=== PATIENT | female | born 1950 | race Caucasian/White ===

== ENCOUNTER 2017-08-22 13:21 | Outpatient (CLI) | payer OTHER ==
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
== END 2017-08-22 13:22 | disposition home or self-care (01) ==
LOC: MADRAD 13:21
PROVIDERS: ATTEND Physician Assistant
DX: M54.6 Pain in thoracic spine (principal); M47.896 Other spondylosis, lumbar region; M47.894 Other spondylosis, thoracic region
CPT/HCPCS: 72072; 72100

== ENCOUNTER 2018-04-20 20:59 | Emergency (ER) | payer OTHER | END 2018-04-20 21:42 | disposition home or self-care (01) | LOC: MADERS 20:59 | DX: I10 Essential (primary) hypertension (principal); B02.9 Zoster without complications; I48.91 Unspecified atrial fibrillation; F32.9 Major depressive disorder, single episode, unspecified; F17.210 Nicotine dependence, cigarettes, uncomplicated; Z87.442 Personal history of urinary calculi; Z79.01 Long term (current) use of anticoagulants; Z79.899 Other long term (current) drug therapy; Z79.82 Long term (current) use of aspirin | CPT/HCPCS: 99283 ==

== ENCOUNTER 2018-05-23 11:12 | Emergency (ER) | payer MEDICARE, OTHER ==
[2018-05-23 12:46] LABS: #Basophils 0.1 thou/uL (0.0-0.2); #Eosinphils 0.3 thou/uL (0.0-0.7); #Lymphocytes 2.4 thou/uL (1.20-3.40); #Monocytes 0.8 thou/uL (0.11-0.59); #Neutrophils 6.5 thou/uL (1.40-6.50); %Eosinophils 2.8 % (0.0-10.0); %Lymphocytes 23.5 % (21.0-51.0); %Monocytes 8.2 % (0.0-10.0); %Neutrophils 64.4 % (42.0-75.0); Hemoglobin 14.5 g/dL (12.0-16.0); Mean Corpuscular HGB CONC 33.3 g/dL (32.0-36.0); Mean Platelet Volume 8.9 fL (7.4-10.4); Platelet Count 216 thou/uL (130-400); Red Blood Cell (RBC) Count 4.69 mill/uL (4.20-5.40)
--- NOTE | 2018-05-23 12:54 | RAD ---
SINGLE VIEW OF THE CHEST: Comparison: 11-29-14 History: Dyspnea. FINDINGS: Single view of the chest shows a normal sized cardiomediastinal silhouette. There is no evidence of c onsolidation, mass, or pleural effusion. The bones are unremarkable. IMPRESSION: No evidence of acute cardiopulmonary disease. POS: [facility]
[2018-05-23 13:03] LABS: ALT (SGPT) 26 U/L (8-55); AST (SGOT) 19 U/L (5-34); Albumin 3.9 g/dL (3.4-4.8); Alkaline Phosphatase 98 U/L (40-150); Anion Gap 14 mmol/L (10-20); BUN (Urea Nitrogen) 16 mg/dL (9.8-20.1); Bilirubin, Total 0.5 mg/dL (0.2-1.2); CK (CPK) 60 U/L (29-168); Calc. Creatinine Clearance 0 mL/min (70-130); Carbon Dioxide 25 mmol/L (23-31); Chloride 108 mmol/L (98-107); Estimated GFR-MDRD Greater than 90; Globulin 2.7 g/dL (2.4-3.5); Glucose 96 mg/dL (80-115); Potassium 3.9 mmol/L (3.5-5.1); Protein, Total 6.6 g/dL (6.0-8.3); Sodium 143 mmol/L (136-145)
--- NOTE | 2018-05-23 13:03 | CT ---
CT BRAIN WITHOUT CONTRASTS: History: Severe vertigo that began this morning. Comparison: None. Technique: Multiple contiguous axial images were obtained in a CT of the brain without contrast. FINDINGS: The brain is normal in morphology without focal lesions or confluent areas of infarct. There is no ev idence of hydrocephalus, intracranial hemorrhage or extraaxial fluid collections. The calvarium and overlying soft tissues are unremarkable. The visualized paranasal sinuses and masto id air cells are well aerated. IMPRESSION: No evidence of acute intracranial abnormality. POS: [facility]
[2018-05-23 13:31] LABS: INR-International Normal Ratio 2.5; PTT 36.4 SEC (22.9-36.1); Prothrombin Time 26.8 SEC (12.0-14.7)
== END 2018-05-23 14:35 | disposition home or self-care (01) ==
LOC: MADERS 11:12
DX: H81.399 Other peripheral vertigo, unspecified ear (principal); R06.00 Dyspnea, unspecified; I48.91 Unspecified atrial fibrillation; F32.9 Major depressive disorder, single episode, unspecified; F17.210 Nicotine dependence, cigarettes, uncomplicated; Z79.899 Other long term (current) drug therapy; Z79.01 Long term (current) use of anticoagulants; Z79.82 Long term (current) use of aspirin
CPT/HCPCS: 36415; 70450; 71045; 80053; 82550; 84484; 85025; 85610; 85730; 93005

== ENCOUNTER 2020-12-24 16:23 | Outpatient (CLI) | payer MEDICARE, OTHER ==
[2020-12-24 17:01] LABS: INR-International Normal Ratio 3.1; PTT 39.5 sec (22.9-36.1); Prothrombin Time 32.7 sec (12.0-14.7)
== END 2020-12-24 16:24 | disposition home or self-care (01) ==
LOC: MADLAB 16:23
PROVIDERS: ATTEND Family Medicine
DX: Z51.81 Encounter for therapeutic drug level monitoring (principal); Z79.01 Long term (current) use of anticoagulants
CPT/HCPCS: 36415; 85610; 85730

== ENCOUNTER 2021-01-13 10:21 | Outpatient (CLI) | payer MEDICARE, OTHER ==
[2021-01-13 11:03] LABS: INR-International Normal Ratio 2.6; PTT 38.5 sec (22.9-36.1); Prothrombin Time 28.1 sec (12.0-14.7)
== END 2021-01-13 10:22 | disposition home or self-care (01) ==
LOC: MADLAB 10:21
PROVIDERS: ATTEND Family Medicine
DX: Z51.81 Encounter for therapeutic drug level monitoring (principal); I48.91 Unspecified atrial fibrillation; Z79.01 Long term (current) use of anticoagulants
CPT/HCPCS: 36415; 85610; 85730

== ENCOUNTER 2021-07-08 10:47 | Outpatient (CLI) | payer MEDICARE, OTHER | END 2021-07-08 10:48 | disposition home or self-care (01) | LOC: MADLAB 10:47 → MADRAD 10:48 | PROVIDERS: ATTEND Family Medicine | DX: J45.40 Moderate persistent asthma, uncomplicated (principal) | CPT/HCPCS: 71046 ==

== ENCOUNTER 2022-08-11 08:44 | Outpatient (CLI) | payer MEDICARE, OTHER | END 2022-08-11 08:45 | disposition home or self-care (01) | LOC: MADCT 08:44 | PROVIDERS: ATTEND Registered Nurse | DX: R31.29 Other microscopic hematuria (principal); R10.32 Left lower quadrant pain; N21.0 Calculus in bladder; N21.1 Calculus in urethra; K76.0 Fatty (change of) liver, not elsewhere classified; I71.40 Abdominal aortic aneurysm, without rupture, unspecified; Z90.710 Acquired absence of both cervix and uterus; Z98.890 Other specified postprocedural states | CPT/HCPCS: 74176 ==

== ENCOUNTER 2022-12-21 17:59 | Emergency (ER) | payer MEDICARE, OTHER ==
[2022-12-21 19:36] LABS: #Basophils 0.1 thou/uL (0.0-0.2); #Eosinphils 0.3 thou/uL (0.0-0.7); #Lymphocytes 2.1 thou/uL (1.20-3.40); #Monocytes 0.9 thou/uL (0.11-0.59); #Neutrophils 7.9 thou/uL (1.40-6.50); %Basophils 1.3 % (0.0-1.0); %Eosinophils 2.5 % (0.0-10.0); %Lymphocytes 18.9 % (21.0-51.0); %Neutrophils 69.4 % (42.0-75.0); Hemoglobin 16.4 g/dL (12.0-16.0); Mean Corpuscular HGB CONC 32.1 g/dL (32.0-36.0); Mean Corpuscular Hemoglobin 30.8 pg (27.0-31.0); Mean Corpuscular Volume 95.9 fl (78.0-98.0); Mean Platelet Volume 10.1 fL (7.4-10.4); Platelet Count 220 10x3/uL (130-400); RBC Distribution Width 13.4 % (11.5-14.5); Red Blood Cell (RBC) Count 5.32 mill/uL (4.20-5.40); White Blood Cell (WBC) Count 11.3 10x3/uL (4.8-10.8)
[2022-12-21 19:50] LABS: INR-International Normal Ratio 1.1; Prothrombin Time 14.9 sec (12.0-14.7)
[2022-12-21 19:58] LABS: ALT (SGPT) 17 U/L (8-55); AST (SGOT) 15 U/L (5-34); Albumin 3.7 g/dL (3.4-4.8); Alkaline Phosphatase 94 U/L (40-110); Anion Gap 12 mmol/L (10-20); BUN (Urea Nitrogen) 12 mg/dL (9.8-20.1); Bilirubin, Total 0.4 mg/dL (0.2-1.2); CK (CPK) 54 U/L (29-168); Calc. Creatinine Clearance 0 mL/min (70-130); Calcium 9.7 mg/dL (7.8-10.44); Carbon Dioxide 28 mmol/L (23-31); Chloride 105 mmol/L (98-107); Estimated GFR 94; Globulin 3.1 g/dL (2.4-3.5); Glucose 94 mg/dL (80-115); Potassium 4.3 mmol/L (3.5-5.1); Protein, Total 6.8 g/dL (5.8-8.1); Sodium 141 mmol/L (136-145)
== END 2022-12-22 09:12 | disposition short-term general hospital (02) ==
LOC: MADERS 17:59
DX: I48.20 Chronic atrial fibrillation, unspecified (principal); R00.1 Bradycardia, unspecified; I10 Essential (primary) hypertension; F17.210 Nicotine dependence, cigarettes, uncomplicated; Z79.01 Long term (current) use of anticoagulants; Z79.899 Other long term (current) drug therapy
CPT/HCPCS: 71045; 80053; 82550; 84484; 85025; 85610; 93005